=== PATIENT | female | born 1990 | race Caucasian/White ===

== ENCOUNTER 2022-02-22 20:07 | Emergency (ER) | payer BC ==
[2022-02-22 20:22] VITALS: BP 127/78; PULSE 93; RESP 18; TEMP 98.7; BMI 28.5
== END 2022-02-22 21:10 | disposition home or self-care (01) ==
LOC: FER 20:07
DX: O9A.212 Injury, poisoning and certain other consequences of external causes complicating pregnancy, second trimester (principal); S93.422A Sprain of deltoid ligament of left ankle, initial encounter; X50.0XXA Overexertion from strenuous movement or load, initial encounter
CPT/HCPCS: 73610-TC-LT-FY; 99281-25

== ENCOUNTER 2022-08-11 12:35 | Emergency (ER) | payer BC ==
[2022-08-11 13:02] VITALS: BP 134/85; PULSE 87; RESP 20; TEMP 98.7; BMI 40.7
[2022-08-11 14:11] LABS: EPITHELIAL CELLS FEW /hpf
== END 2022-08-11 14:25 | disposition home or self-care (01) ==
LOC: FER 12:35
DX: R30.0 Dysuria (principal); R10.30 Lower abdominal pain, unspecified; N39.0 Urinary tract infection, site not specified; B96.89 Other specified bacterial agents as the cause of diseases classified elsewhere
CPT/HCPCS: 81003; 81015; 87086; 99283-25